=== PATIENT | male | born 1990 | race Caucasian/White ===

== ENCOUNTER 2021-02-16 14:33 | Emergency (ER) | payer OTHER, SELFPAY ==
[2021-02-16 14:34] VITALS: BP 146/85; PULSE 56; RESP 16; TEMP 36.9; O2SAT 100; BMI 24.7
[2021-02-16 15:20] LABS: Bacteria 0 SEEN /hpf (None Seen); Mucous, Urine 0 SEEN /hpf (<or=2+); Squamous Epithelial Cells - UA 0 SEEN /hpf (0-5); White Blood Cells 0 SEEN /hpf (0-5)
[2021-02-16 15:22] LABS: Color, Urine Yellow (Yellow); Glucose, Dipstick Normal (Normal); Ketone-Dipstick Negative (Negative); Leukocyte Esterase-Dipstick Negative /ul (Negative); Nitrite-Dipstick Negative (Negative); Occult Blood-Urine 50 /ul (Negative); Protein-Dipstick 15 mg/dl (Negative); Urine Bilirubin Dipstick Negative (Negative); Urine Clarity Clear (Clear); Urine Urobilinogen Normal (Normal); Urine pH 6.5 (5.0 - 8.0)
[2021-02-16 15:34] LABS: Amorphous Sediment 1+; Red Blood Cells-Urine 0-5 SEEN /hpf (0-5)
[2021-02-16 15:36] LABS: Absolute Lymphocyte Count 2.46 X10^3/uL (0.83-4.51); Absolute Neutrophil Count 4.8 X10^3/uL (2.0-7.7); Basophil# 0.04 X10^3/uL; Basophil% 0.5 % (0-1); Eosinophils% 1.2 % (0-5); Hematocrit 42.1 % (40-54); Hemoglobin 14.2 g/dL (13.0-16.5); Lymphocyte # 2.46 X10^3/ul (0.83-4.51); Lymphocyte % 29.7 % (19-41); Mean Corp Hgb Conc 33.7 g/dL (32-36); Mean Corpuscular Hgb 31.2 pg (27.0-32.0); Mean Corpuscular Volume 92.5 fL (80-94); Mean Platelet Vol. 9.8 fl (6.2-12.0); Monocyte# 0.85 X10^3/uL; Monocyte% 10.3 % (0-10); NRBC Flagged by Analyzer 0 % (0-5); Neutrophil # 4.81 X10^3/uL (2.7-7.7); Neutrophil % 57.9 % (47-70); Platelet Count 279 K/mm3 (150-450); RBC Distribution Width CV 11.8 % (11.6-14.6); RBC Distribution Width SD 39.6 fl (35.1-43.9); Red Blood Count 4.55 M/mm3 (4.6-6.2); White Blood Count 8.3 K/mm3 (4.4-11.0)
--- NOTE | 2021-02-16 15:42 | CT_ITS ---
STUDY: CT ABDOMEN AND PELVIS WITHOUT CONTRAST REASON FOR EXAM: Male, 30 years old. Left flank pain RADIATION DOSAGE (If Supplied By Facility): CTDIvol = ( 7.48 ) mGy, DLP = ( 354.81 ) mGycm TECHNIQUE: Transaxial images were obtained from the dome of the diaphragm to the symphysis pubis without oral contrast, and without intravenous contrast. Sagittal and coronal images were reconstructed. Individualized dose optimization techniques were used for this CT. COMPARISON: None. FINDINGS: The visualized lung bases are unremarkable. The visualized portions of the heart are within normal limits. Normal liver. Normal gallbladder and extrahepatic biliary system. Normal spleen. Normal pancreas. Normal bilateral adrenal glands. There is no hydronephrosis. There are 2 left renal calyceal nonobstructing lower pole calculi at C6 and 1 mm. There is a punctate 1 mm right calyceal nonobstructing calculus. There is a 3 mm left ureterovesical junction stone. There is a left renal cyst. This does not require further imaging. Normal visualized stomach. Normal small intestine. Normal colon. The appendix is visualized and appears normal. Normal abdominal aorta. Normal inferior vena cava. Normal retroperitoneum. Normal urinary bladder. Normal abdominal wall. Normal osseous structures. CT/Abdomen/Pelvis without Cont IMPRESSION: 1. Left ureterovesical junction 3 mm stone without hydronephrosis. 2. Left calyceal nonobstructing stones, 6mm and 1 mm. Electronically Signed: Sarika French MD at 16:59 EDT Tel , Service support ,
[2021-02-16 15:49] LABS: Anion Gap 7 (5-15); BUN 13 mg/dL (7-18); BUN/Creat Ratio 14.1 RATIO (10-20); Calcium,Total 8.6 mg/dL (8.5-10.1); Chloride 106 mmol/L (98-107); Creatinine, Serum 0.92 mg/dL (0.70-1.30); EST Glomerular Filtration Rate 104 mL/min (>60); Est Glom Filt Rate - Afr Amer 125 mL/min (>60); Glucose 89 mg/dL (74-106); Potassium 3.7 mmol/L (3.5-5.1); Sodium Level 142 mmol/L (136-145)
--- NOTE | 2021-02-16 17:59 | EX.ED.DYSGE1 ---
HPI History of Present Illness Chief Complaint: Flank Pain Informant: patient Onset/Context/Timing Onset: Yesterday Context: Sudden Onset Timing: Continuous Quality: Aching Location: Left lower flank Worsened by: Nothing Relieved by: Nothing Narrative Narrative: Patient presents with left flank pain that began yesterday. Patient describes his pain as aching. Patient states it is over the left lower flank. Patient admits to some urinary urgency but denies any dysuria or hematuria. Patient admits to some nausea and vomiting. Patient is unable to find a position of comfort. Patient states nothing makes the pain worse and nothing makes the pain better. Patient denies any prior history of kidney stones. [facility] Medical History (Updated 02/16/21 @ 18:[address] Mateo Padron DO) Vasectomy planned no medical history Home Medications hydrocodone-acetaminophen 1 tab PO Q6H PRN PRN 3 Days #10 tablet 02/16/21 [Rx Last Taken Unknown] Allergy/AdvReac Type Severity Reaction Status Date / Time No Known Allergies Allergy Verified 02/16/21 14:35 Surgical History (Updated 02/16/21 @ 21:[address] Mateo Padron DO) History of vasectomy Social History Smoking Status: Never smoker ROS ROS ED Constitutional Constitutional ED: Denies chills or fever(s) Eyes Eyes: Denies blurry vision or change in vision ENT ENT ED: Denies rhinorrhea or sore throat Cardiovascular Cardiovascular: Denies chest pain or palpitations Respiratory/Chest Respiratory/Chest: Denies cough or dyspnea Gastrointestinal Gastrointestinal: Reports nausea and vomiting Genitourinary Genitourinary ED: Denies dysuria or hematuria Musculoskeletal Musculoskeletal: Reports back pain; Denies neck pain Integumentary Denies abscess or rash Neurologic Neurologic: Reports headache(s); Denies weakness Allergic/Immunologic Allergic/Immunologic ED: Denies mouth swelling or urticaria EXAM Physical Exam Const Vital Signs: 02/16/21 14:34 02/16/21 18:17 Temperature 98.5 F Temperature Source Temporal Pulse Rate 56 L 51 L Respiratory Rate 16 12 Blood Pressure 146/85 H 133/79 H Blood Pressure Mean 105 Pulse Ox 100 98 Oxygen Delivery Method Room Air Positive well nourished and well developed General Appearance ED: well developed HEENT Reports moist mucous membranes Neck supple and no JVD Resp normal respiratory effort and clear to auscultation bilaterally Cardio regular rate, regular rhythm and no murmurs GI normal to inspection, nondistended, normoactive bowel sounds and non-tender Palpation: soft Back/Spine General Back: CVA tenderness left Extremity normal to inspection General Extremety ED: Negative for edema or tenderness General Extremity: Negative for edema Neuro oriented x3, CN's II-XII intact bilaterally and no sensory deficits noted Sensorium / Orientation: alert Motor Exam: strength 5/5 throughout Psych mental status grossly normal Skin no rashes or lesions noted MDM MDM MDM Narrative Medical decision making narrative: CBC and basic metabolic profile were within normal limits. Urinalysis does not show any evidence of urinary tract infection. CT scan of the abdomen and pelvis was obtained. There is a 3 mm calculus at the left ureterovesicular junction. This was interpreted by the radiologist and reviewed by myself. Patient was instructed to drink plenty of fluids. Patient was given a prescription for hydrocodone to take as needed for pain. Patient was instructed to follow-up with his primary care physician in 5 to 7 days. Patient was also given a referral for urology. Patient understood and was agreeable with the plan. All questions were answered. Lab Data Attestation: I reviewed the patient's lab results. Labs: Laboratory Results - last 24 hr 02/16/21 02/16/21 02/16/21 15:15 15:30 15:30 WBC 8.3 RBC 4.55 L Hgb 14.2 Hct 42.1 MCV 92.5 MCH 31.2 MCHC 33.7 RDW Std Deviation 39.6 RDW Coeff of Trena 11.8 Plt Count 279 MPV 9.8 Immature Gran % (Auto) 0.400 Neut % (Auto) 57.9 Lymph % (Auto) 29.7 Cottle % (Auto) 10.3 H Eos % (Auto) 1.2 Baso % (Auto) 0.5 Absolute Neuts (auto) 4.8 Absolute Lymphs (auto) 2.46 Nucleated RBC % 0 Sodium 142 Potassium 3.7 Chloride 106 Carbon Dioxide 29.0 Anion Gap 7 BUN 13 Creatinine 0.92 Estim Creat Clear Calc 135.10 Est GFR (MDRD) Af Amer 125 Est GFR (MDRD) Non-Af 104 BUN/Creatinine Ratio 14.1 Glucose 89 Calcium 8.6 Urine Color Yellow Urine Clarity Clear Urine pH 6.5 Ur Specific [place] 1.020 Urine Protein 15 H Urine Glucose (UA) Normal Urine Ketones Negative Urine Occult Blood 50 H Urine Nitrite Negative Urine Bilirubin Negative Urine Urobilinogen Normal Ur Leukocyte Esterase Negative Urine RBC 0-5 SEEN Urine WBC 0 SEEN Ur Squamous Epith Cells 0 SEEN Amorphous Sediment 1+ Urine Bacteria 0 SEEN Urine Mucus 0 SEEN Radiography Diagnostic Testing: Radiology Impression Abdomen/Pelvis CT 02/16/21 15:42 IMPRESSION: 1. Left ureterovesical junction 3 mm stone without hydronephrosis. 2. Left calyceal nonobstructing stones, 6mm and 1 mm. Electronically Signed: Sarika French MD at 16:59 EDT Tel , Service support , Discharge Plan Triage Chief Complaint: Flank Pain ED Provider: Mateo Padron Dx/Rx/DC Orders Clinical Impression: Calculus of distal left ureter Instructions: ED Kidney Stone w/ Colic Prescriptions: New hydrocodone-acetaminophen [hydrocodone-acetaminophen] 1 TABLET tablet 1 tab PO Q6H PRN PRN (Reason: Pain) 3 Days Qty: 10 RF: 0 Primary Care Provider: Care Physician,No Primary Referrals: Dale Mata MD [STAFF PHYSICIAN] - 5-7 Days Care Physician,No Primary [Primary Care Provider] - Disposition Disposition: Home, self care Discharge Date/Time: 02/16/21 18:19
[2021-02-16 18:17] VITALS: BP 133/79; PULSE 51; RESP 12; O2SAT 98
== END 2021-02-16 18:19 | disposition home or self-care (01) ==
PROVIDERS: Emergency Provider Emergency Medicine
DX: N20.1 Calculus of ureter (principal); Z98.52 Vasectomy status
CPT/HCPCS: 74176; 80048; 81001; 85025; 99284; A4216

== ENCOUNTER 2021-03-20 11:36 | Emergency (ER) | payer OTHER, SELFPAY ==
[2021-03-20 11:36] VITALS: BP 133/90; PULSE 63; RESP 16; TEMP 36.8; O2SAT 100; BMI 24.4
--- NOTE | 2021-03-20 11:47 | EX.ED.UPPERE ---
HPI History of Present Illness Chief Complaint: Laceration Detail of Chief Complaint: Laceration to left small finger Informant: patient Narrative Narrative: Patient accidentally lacerated left small finger while using an oscillating tool. Patient is right-hand dominant. Patient uncertain of his last tetanus shot. He denies any significant medical history. Tetanus Immunization: Unknown [facility] Medical History (Updated 03/20/21 @ 12:[address] Lainey Torres, DO) Vasectomy planned Allergy/AdvReac Type Severity Reaction Status Date / Time No Known Allergies Allergy Verified 03/20/21 11:38 Surgical History History of vasectomy Social History Smoking Status: Never smoker ROS ROS ED Constitutional Constitutional ED: Reports systems reviewed and no addt'l complaints, except as documented; Denies body ache(s), change in weight or chills Eyes Eyes: Denies acute decrease in peripheral vision, change in vision, double vision or loss of vision ENT ENT ED: Reports none; Denies ear pain, lip swelling, loss taste/smell, neck pain, otalgia or sore throat Cardiovascular Cardiovascular: Reports none; Denies abdominal pain, chest pain with activity, leg edema, lightheadedness, palpitations, rapid heart rate or syncope Respiratory/Chest Respiratory/Chest: Reports none; Denies change in mental status, dry cough, dyspnea, hemoptysis, shortness of breath at rest or shortness of breath with exertion Gastrointestinal Gastrointestinal: Reports none; Denies abdominal pain, change in stool character, diarrhea, hematemesis, hematochezia, melena, rectal bleeding or vomiting Genitourinary Genitourinary ED: Reports none; Denies abdominal discomfort, anuria, dysuria, genital pain or polyuria Musculoskeletal Musculoskeletal: Reports none and other Details: Laceration left small finger ; Denies arthralgias, back pain, difficulty walking, extremity pain, muscle weakness or myalgias Integumentary Reports none; Denies abscess or rash Neurologic Neurologic: Reports none; Denies abnormal gait, confusion, focal weakness, frequent falls, headache(s), loss of vision, numbness, paresthesias, radicular pain, vertigo or weakness Psychiatric Psychiatric: Reports systems reviewed and no addt'l complaints, except as documented and none; Denies behavioral changes, confusion, difficulty concentrating, hallucinations, suicidal ideation, tactile hallucinations or visual hallucinations Endocrine Endocrinology: Denies none, cold intolerance, excessive sweating, fatigue or heat intolerance Hematologic/Lymphatic Hematologic/Lymphatic: Reports none; Denies anemia, easy bleeding or easy bruising Allergic/Immunologic Allergic/Immunologic ED: Denies as per HPI, none, lip swelling, mouth swelling, throat swelling, tongue swelling or hives EXAM Physical Exam Const Vital Signs: 03/20/21 11:36 Temperature 98.2 F Temperature Source Temporal Pulse Rate 63 Respiratory Rate 16 Blood Pressure 133/90 H Blood Pressure Mean 104 Pulse Ox 100 Oxygen Delivery Method Room Air Positive well nourished and well developed General Appearance ED: well developed and NAD HEENT Reports TM's clear and moist mucous membranes normocephalic and atraumatic; Negative for trauma or tenderness Tympanic Membrane ED: Yes TM's clear Eyes PERRL and EOMs intact bilaterally General Eye ED: Negative for pale conjunctiva or scleral icterus Neck no lymphadenopathy, supple and no JVD General: Negative for tenderness Chest Wall inspection of chest normal and palpation of chest normal Chest: Negative for tenderness Resp normal respiratory effort and clear to auscultation bilaterally Effort and Inspection: Negative for respiratory distress or pain with movement Auscultation: Negative for rhonchi, wheezes or diminished lung sounds Cardio regular rate, regular rhythm, S1 normal heart sound, S2 normal heart sound and no murmurs Peripheral Pulses: pulses 2+ throughout GI normal to inspection, nondistended, normoactive bowel sounds, soft to palpation, non-tender, non-distended and no masses Back/Spine no CVA tenderness and no thoracic nor lumbar tenderness Extremity normal to inspection Extremity Narrative: Patient has a flap-like laceration to the tip of the distal phalanx pulp measuring approximately 1 cm in total length. Patient neurovascularly intact with normal sensation. Normal range of motion at the DIP and PIP joints. General Extremety ED: Negative for edema General Extremity: Negative for edema Neuro oriented x3, CN's II-XII intact bilaterally, no sensory deficits noted and gait normal Sensorium / Orientation: awake, alert, oriented to person, oriented to place and oriented to time Motor Exam: strength 5/5 throughout and strength abnormal Psych mental status grossly normal Skin no rashes or lesions noted and no wounds MDM MDM MDM Narrative Medical decision making narrative: Patient had laceration repair of flap laceration to left small finger. Patient advised to follow-up with primary care physician 10 days for suture removal. Patient advised to return if worsening pain, redness, swelling, purulent drainage, or condition should worsen anyway. Procedures Lacerations Left small finger laceration: Length: 0.59 in Depth: Sub Q Shape: Flap Prep: Shtyler-Clens Laceration repair: Digital block and Lidocaine Irrigated (ml): 50 Number of Sutures/[place]: 2 Suture Information: [place] Discharge Plan Triage Chief Complaint: Laceration ED Provider: Lainey Torres Dx/Rx/DC Orders Clinical Impression: Finger laceration Instructions: ED Laceration, Hand: All Closures Primary Care Provider: Care Physician,No Primary Referrals: Ronan Bhatia DO [STAFF PHYSICIAN] - 10 Day for suture removal Care Physician,No Primary [Primary Care Provider] - Disposition Disposition: Home, Self Care
[2021-03-20] MEDS: Diphth,Pertuss(Acell),Tet Vac 0.5 ML Vial IM (12:11)
[2021-03-20] MEDS: Lidocaine 1% (20 ml mdv) 20 ML Vial 6 ML INFILT (12:12)
== END 2021-03-20 12:52 | disposition home or self-care (01) ==
PROVIDERS: Emergency Provider Emergency Medicine
DX: S61.217A Laceration without foreign body of left little finger without damage to nail, initial encounter (principal); W27.8XXA Contact with other nonpowered hand tool, initial encounter; Y92.9 Unspecified place or not applicable; Y99.9 Unspecified external cause status; Z23 Encounter for immunization
CPT/HCPCS: 12001; 90471; 90715; 99283